=== PATIENT | female | born 1995 | race Caucasian/White ===

== ENCOUNTER 2024-04-26 22:00 | Emergency (ER) | payer OTHER ==
[~2024-04-26] VITALS: Ht 175.3 cm; Wt 74.8 kg
[2024-04-26 22:45] VITALS: BP 126/68; TEMP 98; O2SAT 98
== END 2024-04-26 22:45 | disposition home or self-care (01) ==
LOC: ER 22:05
DX: S70.311A Abrasion, right thigh, initial encounter (principal); W01.0XXA Fall on same level from slipping, tripping and stumbling without subsequent striking against object, initial encounter; Y93.89 Activity, other specified; Y92.89 Other specified places as the place of occurrence of the external cause; Y99.8 Other external cause status